=== PATIENT | female | born 1975 | race Two or more races ===

== ENCOUNTER 2022-04-06 01:23 | Emergency (ER) | payer OTHER ==
[~2022-04-06] VITALS: Ht 167.6 cm; Wt 65.8 kg
[2022-04-06] MEDS ORDERED: ORPHENADRINE C100 MG PO (03:48)
[2022-04-06] MEDS ORDERED: KETO10TA2 PO (03:48)
== END 2022-04-06 04:15 ==
LOC: ER 01:23
DX: M25.511 Pain in right shoulder (principal); M62.838 Other muscle spasm